=== PATIENT | male | born 1960 | race African-American/Black ===

== ENCOUNTER 2020-09-19 01:32 | Emergency (ER) | payer OTHER ==
[~2020-09-19] VITALS: Ht 172.7 cm; Wt 107.5 kg
--- NOTE | ~2020-09-19 | EMS ---
[address] [address] EMS Patient Care Report Name: NISSA NAJERA Room #: DEP JESSICA Zaragoza#: [id number] Admission: 09/19/20 Attend Phys: Discharge: 09/19/20 Date of : 56 Report #: [id number] THIS REPORT FOR: //name// Report Transmitted: 09/20/2020 08:38 EMS Care Summary [place], [place]/[facility] Incident [id number] @ 09/19/2020 01:02 Incident Location [address] Patient NISSA NAJERA Male, 60 Years 1960 Patient Address [address] [place] [address] Patient History Depression, Patient Allergies No known allergies, Patient Medications Other, Chief Complaint SI Disposition Transported No Lights/[place] Dispatch Reason Psychiatric Problem/Abnormal Behavior/Suicide Attempt Transported To [facility] Narrative M41 WAS DISPATCHED TO A RESIDENCE ON A PSYCH. ON ARRIVAL PD ON SCENE TELLS EMS THAT PT IS SUICIDAL AND WILLING TO GO TO THE HOSPITAL. EMS FINDS PT LAYING IN HIS BED. PT ADMITS TO FEELING SI STARTING EARLIER THAT NIGHT. PT STATES HE DOES HAVE A PLAN BUT DOES NOT WISH TO TALK ABOUT IT AT THIS TIME. PT REQUESTS TRANSPORT [facility] TO HAVE HIS MEDS REEVALUATED. PT IS CALM AND [address] [address] EMS Patient Care Report Name: NISSA NAJERA Room #: DEP Mila#: [id number] Admission: 09/19/20 Attend Phys: Discharge: 09/19/20 Date of : 56 Report #: [id number] COOPERATIVE AND WALKS TO AND FROM AMBULANCE WITHOUT ASISTANCE. VITALS MONITORED EN ROUTE WITH NO CHANGES IN PT CONDITION. Initial Vitals @01:19P: 97,R: 18,BP: 155/98,Pain: 0/10,GCS: 15,CO: 7,SpO2: 96,Revised Trauma: 12, @01:26P: 100,R: 18,BP: 160/93,Pain: 0/10,GCS: 15,CO: 5,SpO2: 97,Revised Trauma: 12, Assessments @01:14MENTAL:Person Oriented,Time Oriented,Event Oriented,Place Oriented,SKIN:HEENT:Head/Face: No Abnormalities,Neck/Airway: No Abnormalities,LUNG SOUNDS:General: No Abnormalities,Left Upper: No Abnormalities,Right Upper: No Abnormalities,Left Lower: No Abnormalities,Right Lower: No Abnormalities,ABDOMEN:General: No Abnormalities,Left Upper: No Abnormalities,Right Upper: No Abnormalities,Left Lower: No Abnormalities,Right Lower: No Abnormalities,PELVIS//GI:No Abnormalities,EXTREMITIES:Left Arm: No Abnormalities,Right Arm: No Abnormalities,Left Leg: No Abnormalities,Right Leg: No Abnormalities,PULSE:NEURO:No Abnormalities, Impression Behavioral/psychiatric episode Procedures @01:14ALS AssessmentResponse: UnchangedSucceeded Timeline 01:,Call Received :,Dispatch Notified 01:02,Dispatched 01:02,En Route 01:12,On Scene 01:14,At Patient 01:14,ALS Assessment,Response: UnchangedSucceeded, 01:19,BP: 155/98 M,PULSE: 97,RR: 18 R,SPO2: 96 Ox,ETCO2: ,BG: ,PAIN: 0,GCS: 15, 01:19,Depart Scene 01:26,BP: 160/93 M,PULSE: 100,RR: 18 R,SPO2: 97 Ox,ETCO2: ,BG: ,PAIN: 0,GCS: 15, 01:32,At Destination 01:42,Call Closed Disclaimer v1.1 Copyright 2020 [employer] This EMS Care Summary contains data elements from the applicable legal record (which may be displayed differently). It is designed to provide pertinent information for the following purposes: continuity of care, clinical quality, [facility] [address] [place] [address] EMS Patient Care Report Name: NISSA NAJERA Room #: DEP JESSICA Zaragoza#: [id number] Admission: 09/19/20 Attend Phys: Discharge: 09/19/20 Date of : 56 Report #: [id number] and state data reporting. The complete legal record is available to ED staff and administrators of the receiving hospital in [employer]'s Patient Tracker. All data is provided "as is."
[2020-09-19 02:31] LABS: ABSOLUTE NEUTROPHILS 2.6 thou/uL (1.4-8.2); BASOPHILS 1.5 % (0.0-2.0); EOSINOPHILS 4.7 % (0.0-3.0); HEMATOCRIT 37.2 % (42.0-52.0); HEMOGLOBIN 12.9 gm/dL (14.0-18.0); LYMPHOCYTES 33.5 % (24.0-44.0); MCH 30.8 pg (26.0-34.0); MCHC 34.6 g/dL (28.0-37.0); MCV 89.1 fL (80.0-100.0); PLATELET COUNT 174 thou/uL (150-400); POLYS 49.3 % (36.0-66.0); RBC 4.18 mil/uL (4.50-6.00); RDW 13.7 % (10.5-14.5); WBC 5.2 thou/uL (4.0-11.0)
[2020-09-19 02:53] LABS: ANION GAP 9 mmol/L (7-16); BUN 16 mg/dL (7-18); CALCIUM 8.1 mg/dL (8.5-10.1); CHLORIDE 106 mmol/L (98-107); CO2 26 mmol/L (21-32); CREATININE 1.1 mg/dL (0.7-1.3); GLUCOSE 203 mg/dL (74-106); POTASSIUM 3.6 mmol/L (3.5-5.1); SODIUM 141 mmol/L (136-145)
[2020-09-19 02:59] LABS: DIRECT BILIRUBIN < 0.1 mg/dL (<0.1-0.2); SGOT 56 U/L (15-37); SGPT 164 U/L (16-63); TOTAL BILIRUBIN 0.2 mg/dL (0.2-1.0); TOTAL PROTEIN 6.2 g/dL (6.4-8.2)
[2020-09-19 03:09] LABS: AMP/METHAMP Negative (Negative); BARBITURATES Negative (Negative); BENZODIAZEPINES Negative (Negative); COCAINE Negative (Negative); METHADONE Negative (Negative); OPIATES Negative (Negative); PCP Negative (Negative)
--- NOTE | 2020-09-19 07:31 | EKG ---
[address] [address] ELECTROCARDIOGRAM REPORT Name: NISSA NAJERA Room #: REG Mila#: [id number] Admission: 09/19/20 Attend Phys: Discharge: Date of : 56 Report #: [id number] [facility] ED Test Date: 2020-09-19 Test Time: 02:00:19 Pat Name: NISSA NAJERA Department: Room: Gender: M Pattern Data Operator: CHANTE : 1960 Requested By: Arely Soriano Order Number: [id number] MD: Gallo Blackman Measurements Intervals [place] Rate: 91 P: 51 OK: 152 QRS: 10 QRSD: 149 T: 241 QT: 373 QTc: 459 Interpretive Statements Sinus rhythm Nonspecific intraventricular conduction delay Borderline abnrm T, anterolateral leads No previous ECG available for comparison Electronically Signed On 09-19-2020 7:31:39 CDT by Gallo Blackman [email or web address] <ELECTRONICALLY SIGNED> By: Gallo Blackman MD, [facility] 09/19/20 0731 0200 0200 Gallo Blackman MD, FACC /EPI
[2020-09-19 08:50] VITALS: BP 162/102
--- NOTE | 2020-09-20 08:28 | HC ---
[facility] [address] [place] [address] CONSULTATION Name: NISSA NAJERA Room #: [facility]P [facility] [id number] Admission: 09/19/20 Attend Phys: Discharge: 09/19/20 Date of : 56 Report #: [id number] THIS REPORT FOR: cc: NO FAMILY PHYSICIAN or PCP NO FAMILY PHYSICIAN or PCP Clif Pennington DO ~ DATE OF SERVICE: 09/19/2020 EMERGENCY ROOM CONSULTATION DATE OF PRESENTATION IN THE ER: 09/19/2020 ATTENDING PHYSICIAN: Donn Sterling DO CONSULTING PSYCHIATRIST: Clif Pennington DO REASON FOR CONSULTATION: Concern for suicidality and disposition. CHIEF COMPLAINT: Getting the vaccine. HISTORY OF PRESENT ILLNESS: This is a 60-year-old obese black male who is in a substance abuse residential treatment program through [facility] in [facility]. The patient presented by EMS last night for reported suicidal ideation. The patient in his own words states she "had a breakdown." The emergency room got from him that he has "always been suicidal", but was having increased thoughts today after talking with his daughter. The patient told me that he has a son and a daughter, they sound like different mothers and one of the mothers is a nurse and a triggering event was his concern that his daughter had COVID and here concerned about the coronavirus vaccine. The patient himself has not been vaccinated and he is concerned about what the government may have him the vaccine. I discussed with the patient that the government as in the federal government is neither all good nor all bad, but given the challenges of the pandemic, the vaccine has been highly effective against the serious complications of coronavirus. The patient interestingly did not have any complaints to me about clonazepam or Wellbutrin. He is in a 28-day program, so normally clonazepam is not given in most 28-day programs given its controlled substance relapse potential. Interestingly, the patient reports she is also on parole. I did not get into the detail of why he had a criminal justice history. He denies intent to harm himself, reports no access to dangerous weapons. He states he has been sober from cocaine for over a month. He has not relapsed on other things like alcohol or other drugs that may be proxy for cocaine. [facility] I left a voicemail for his computer game programmer Tawnya. He has no medication appointment at this time. In reviewing the [employer] website and talking with the patient, I have recommended to Dr. Sterling that it will be best [address] [address] CONSULTATION Name: NISSA NAJERA Room #: DEP JESSICA Zaragoza#: [id number] Admission: 09/19/20 Attend Phys: Discharge: 09/19/20 Date of : 56 Report #: [id number] [facility] [address] in [place], [place]. PAST MEDICAL HISTORY: Includes arthritis. ALLERGIES: No known allergies. REVIEW OF SYSTEMS: From Dr. Soriano's evaluation in the ER. CONSTITUTIONAL: Denies fever, chills, malaise, unexplained weight change. EYES: Denies eye pain, visual change, or discharge. HENT: Denies hearing changes, ear drainage, ear infections, ear pain, neck pain or neck stiffness. RESPIRATORY: Denies cough, shortness of breath, hemoptysis or respiratory distress. CARDIOVASCULAR: Denies chest pain, chest pain with exertion, or edema. GASTROINTESTINAL: Denies abdominal pain, nausea, vomiting or diarrhea. GENITOURINARY: Denies burning, frequency or dysuria. MUSCULOSKELETAL: Denies back pain, joint pain, muscle weakness or myalgias. SKIN: Denies rash. NEUROLOGIC: Denies weakness, headaches or loss of consciousness. Otherwise, 10-point review of systems was negative. PHYSICAL EXAMINATION: VITAL SIGNS: From the ER, pulse ox 98%, BP 156/98, temperature 36.4, weight is 107.50 kg. Physical exam was grossly normal. GENERAL: In hospital gown, sitting on the gurney. He walked around, appeared fairly spry. DIAGNOSTIC DATA: EKG showed a rate of 91, normal sinus rhythm, normal axis, QTc of 459 milliseconds. LABORATORY DATA: The laboratories done last night shows sodium 141, potassium 3.6, chloride 106, bicarbonate 26, anion gap 9, BUN 16, creatinine 1.1, estimated GFR 82, glucose 203, calcium 8.1, total bilirubin 0.2, direct bilirubin less than 0.1, AST high at 56, ALT high at 164, alkaline phosphatase 79, total protein 6.2, albumin 3.0. White count 5.2, H and H 12.9 and 37.2, platelet count 174. Urine drug screen was negative. Alcohol level was negative. COVID-19 Ryder test was negative. I should add, there was some confusion last night. The patient was assessed by the nurse in a [facility], but he was not accepted for admission for on-call covering for me, hence my evaluation of him this morning. MENTAL STATUS EXAMINATION: This is a well-developed, obese black male appearing stated age. Attention intact. Concentration intact. Speech normal rate, volume, and tone. Thought process: Linear and goal directed. Thought content: [address] [address] CONSULTATION Name: NISSA NAJERA Room #: DEP [facility]#: [id number] Admission: 09/19/20 Attend Phys: Discharge: 09/19/20 Date of : 56 Report #: [id number] Future oriented, focused on his daughter's birthday in 4 days, giving her a call, making a cake for her. Denied any suicidal or homicidal ideation, auditory, visual, or tactile hallucinations. Mood and affect was anxious, congruent, calm. Insight and judgment would be limited given his refusal of the COVID vaccine, but again not suicidal. Judgment: Fair to limited. Fund of knowledge average range. FORMULATION: A 60-year-old black male sent out for concerns of suicidality from residential 28-day program at [facility]. DIAGNOSES: At this time, substance use disorder, at least moderate for cocaine, adjustment disorder with anxiety. RECOMMENDATIONS: The patient is not meeting criteria for inpatient psychiatric hospitalization. Recommend discharging the patient back to residential substance treatment program. Recommend continuing outpatient measures including psychotherapy. Given the crisis nature of my evaluation, I will not address his current medications in the treatment program. I do not have specific records from [facility], but again I have my doubts he is being prescribed clonazepam at all. I discussed my findings with Dr. Sterling and the emergency room nurse. They are in agreement. Thank you for allowing me to participate in this patient's case. <ELECTRONICALLY SIGNED> By: Clif Pennington, 09/20/2028 4 2120 Clif Pennington DO /nt
== END 2020-09-19 08:51 | disposition home or self-care (01) ==
LOC: ER 01:32
PROVIDERS: Emergency Medicine
DX: R45.851 Suicidal ideations (principal); Z20.822 Contact with and (suspected) exposure to COVID-19; M19.90 Unspecified osteoarthritis, unspecified site